=== PATIENT | female | born 1985 | race Asian ===

== ENCOUNTER 2025-03-19 09:43 | Emergency (ER) | payer MEDICAID, SELFPAY ==
[2025-03-19 09:55] VITALS: BP 204/113; PULSE 111; RESP 19; O2SAT 98
[2025-03-19 10:30] VITALS: BP 174/114; PULSE 91; RESP 18; TEMP 36.7; O2SAT 99
[2025-03-19 10:31] VITALS: BMI 31.6
--- NOTE | 2025-03-19 10:37 | PC.NURSE ---
PATIENT CAME IN TO ED FOR NAUSEA, DIZZINESS AND FEELING LIKE SHE WANTS TO PASS OUT. PATIENT STATES THIS STARTED TODAY THIS MORNING. PATIENT HAS HISTORY OF HIGH BLOOD PRESSURE AND HASN'T BEEN TAKING BLOOD PRESSURE MEDICATION FOR THE PAST YEAR. NOTIFIED DR. NAPIER FOR STROKE RULE OUT OF PATIENT.
--- NOTE | 2025-03-19 10:44 | XR_ITS ---
Examination: CT brain head without contrast. 2-D sagittal coronal reconstructions Date and time of exam: March 19, 2025, 1117 hours INDICATIONS: Onset headache and dizziness today CTDI: vol (mGy): 53.4 DLP: (mGycm): 1107 Technique: Multiple CT axial sections of the brain have been obtained, 5 mm slice thickness. Contrast has not been administered. 2-D sagittal, coronal reconstructions have been obtained Low dose protocols were performed. One or more of the following dose reduction techniques were used; automated exposure control, adjustment of the mA and/or KV according to patient size, use of iterative reconstruction technique. Findings: No significant ventricular enlargement. Intra-axial or extra-axial hemorrhage density is not seen. No mass effect or midline shift Basal cisterns are not remarkable. Fourth ventricle is midline. Cranial vault intact. Impression: Negative for acute hemorrhage, mass effect or midline shift Advise clinical correlation and follow-up accordingly
[2025-03-19] MEDS: PROCHLORPERAZINE INJ 5 MG/ML VIAL 2 ML 10 MG IV (10:51)
[2025-03-19 10:59] LABS: Basophils # (Auto) 0.1 Thou/mm3 (0.0-0.2); Basophils % (Auto) 1 % (0-2.5); Eosinophils # (Auto) 0.4 Thou/mm3 (0.0-0.5); Eosinophils % (Auto) 4 % (0-10); Hematocrit 37.7 % (36.0-46.0); Hemoglobin 11.7 g/dL (12.0-16.0); Immature Granulocytes Auto 0.19 Thou/mm3 (0.00-0.00); Lymphocytes # (Auto) 2.9 Thou/mm3 (1.0-4.8); Lymphocytes % (Auto) 27 % (10-50); Mean Corpuscular HGB Conc 31.0 g/dl (31.0-37.0); Mean Corpuscular Hemoglobin 23.6 pg (25.0-35.0); Mean Corpuscular Volume 76 fL (80-100); Monocytes # (Auto) 0.7 Thou/mm3 (0.0-0.8); Monocytes % (Auto) 6 % (0-12); Neutrophils # (Auto) 6.5 Thou/mm3 (1.8-7.7); Neutrophils % (Auto) 61 % (37-80); Nucleated Red Blood Cell # 0.00 Thou/mm3 (0.00-0.00); Platelet Count 293 Thou/mm3 (140-440); RDW Standard Deviation 37.4 fL (36.4-46.3); Red Blood Count 4.95 Miln/mm3 (4.00-5.20); White Blood Count 10.7 Thou/mm3 (3.6-11.0)
[2025-03-19 11:00] LABS: Nucleated Red Blood Cell % 0 /100 WBC (0)
[2025-03-19 11:16] LABS: Alanine Aminotransferase 29 U/L (10-49); Albumin, Serum 5.1 gm/dL (3.5-5.0); Albumin/Globulin Ratio 1.8 (1.2-2.2); Alkaline Phosphatase 73 U/L (46-116); Anion Gap 12 (7-16); Aspartate Amino Transferase 32 U/L (0-34); BUN/Creatinine Ratio 13 Ratio (12-20); Bilirubin,Total 0.3 mg/dL (0.3-1.2); Blood Urea Nitrogen 8 mg/dL (9-23); Calcium 9.5 mg/dL (8.3-10.6); Calcium (Corrected) 9.5 mg/dL (8.5-10.1); Carbon Dioxide 25.4 mMol/L (20.0-31.0); Chloride 103 mMol/L (98-107); Creatinine (Component) 0.6 mg/dL (0.6-1.3); Estimated Creatinine Clearance 132.4 mL/min (>60); Globulin 2.8 gm/dL (2.3-3.5); Glucose 150 mg/dL (74-106); Osmolality,Calculated 280 (275-295); Potassium 3.2 mMol/L (3.4-5.1); Sodium 140 mMol/L (136-145); Total Protein 7.9 gm/dL (5.7-8.2); eGFR > 60 See Note
[2025-03-19 11:30] VITALS: BP 154/104; PULSE 74; RESP 18; O2SAT 95
[2025-03-19 12:10] VITALS: BP 156/105; PULSE 79; RESP 18; TEMP 36.9; O2SAT 97
[2025-03-19 12:30] LABS: HCG,Qualitative Serum Negative
--- NOTE | 2025-03-19 12:44 | PD.EDADULT ---
ED General RME/HPI General Chief complaint: General Adult/Misc Complain Stated complaint: HIGH BP, N/V FEELS LIKE PASSING OUT Time Seen by Provider: 03/19/25 10:36 Arrival date/time: 03/19/25 09:43 RME / HPI RME / HPI narrative: 40-year-old female with a history of hypertension and asthma presented for evaluation of elevated blood pressure. Since this morning, she developed dizziness, nausea, vomiting, and presyncope. She reports a recent cough illness about two weeks ago, now resolved. Patient denies vision changes, fever, diarrhea, or other pain symptoms. Related Data Home Medications ?Medication ?Instructions ?Recorded ?Confirmed albuterol sulfate 90 mcg/actuation 2 inh inhalation PRN PRN Wheezing 05/21/22 05/21/22 aerosol inhaler vit no.95-ferrous 1 tab PO 1XD 05/21/22 05/21/22 fumarate 28 mg-folic acid 800 mcg tablet () Previous Rx's ?Medication ?Instructions ?Recorded ferrous sulfate 325 mg (65 mg 325 mg PO BID #90 tabs 02/12/19 iron) tablet amoxicillin 875 mg-potassium 1 tab PO BID #10 tabs 05/23/22 clavulanate 125 mg tablet docusate sodium 100 mg tablet 100 mg PO BID #20 tabs 05/23/22 hydrocodone 5 mg-acetaminophen 325 1 tab PO Q6H PRN pain #10 tabs 05/23/22 mg tablet ibuprofen 600 mg tablet 600 mg PO Q6H PRN pain #20 tabs 05/23/22 labetalol 100 mg tablet 100 mg PO BID #60 tabs 05/23/22 simethicone 80 mg chewable tablet 80 mg PO QID PRN abdominal 05/23/22 distention #14 tabs lisinopril 40 mg tablet 40 mg PO QDAY #30 tabs 03/19/25 Allergies Allergy/AdvReac Type Severity Reaction Status Date / Time No Known Allergies Allergy Verified 03/19/25 09:46 Review of Systems Review of Systems Systems Reviewed: All systems reviewed, normal except as documented Past Medical History Past Medical History CARDIAC: Positive Hypercholesterolemia and Hypertension RESPIRATORY: Positive Asthma REPRODUCTIVE: Positive Previous Pregnancies ENDOCRINE: Positive Diabetes Mellitus Type 2 OTHER HISTORY: Positive Hospitalization and Chicken Pox Family History FAMILY HISTORY: Positive Family Respiratory Disorders, Family Cardiac Disorders, Family Gastrointestinal Problems and Family Surgery Social History SMOKING STATUS: Former smoker SECOND HAND EXPOSURE: No SUBSTANCE USE: does not use ED Exam Narrative Physical exam: Constitutional: Awake, alert, nontoxic, appears uncomfortable. HEENT: Normocephalic, atraumatic, extraocular movements intact. Neck: Supple CV: Regular rate and rhythm, no murmurs/rubs/gallops Lungs: Clear to auscultation BL, no respiratory distress. Abd: Soft, NT, ND, no HSM noted to palpation Extremities: No deformities, no edema noted Neuro: AAOx3, CN 2-12 GIBL, no acute neuro deficit noted. Skin: Warm, dry, intact Course Course Course Narrative: 1304h: CT head is negative, labs remarkable for mild hypokalemia at 3.2 which we will replace. The blood pressure improved with Labetalol. Will DC home with a prescription of her Lisinopril. Quality Measures none Orders Category Date Time Status CT head/brain wo con Stat Exams 03/19/25 10:44 Completed CBC Stat Lab 03/19/25 10:35 Completed CMP [Comprehensive Metabolic Panel] Stat Lab 03/19/25 10:35 Completed HCG,Qualitative Serum Stat Lab 03/19/25 10:35 Completed Acetaminophen Ivpb [Ofirmev Inj] Med 03/19/25 10:43 Discontinued 1,000 mg in 100 ml IV NOW Labetalol* IV [Trandate* IV] Med 03/19/25 10:43 Discontinued 15 mg IVP X1 ONE Lisinopril [Prinivil] Med 03/19/25 13:09 Discontinued 40 mg PO X1 ONE Potassium Chloride [K-Dur] Med 03/19/25 13:13 Discontinued 40 meq PO X1 ONE Prochlorperazine Inj [Compazine Inj] Med 03/19/25 10:43 Discontinued 10 mg IV X1 ONE Vital Signs Vital signs: Vital Signs Pulse Rate 111 H 03/19/25 09:55 Respiratory Rate 19 03/19/25 09:55 Blood Pressure 204/113 H 03/19/25 09:55 Pulse Oximetry (%) 98 03/19/25 09:55 Oxygen Delivery Method Room Air 03/19/25 09:55 Pulse ox is 98% on room air which is adequate. Discharge Plan Plan Patient Disposition: HOME (Self Care) Patient condition on transfer: Stable Prescriptions/Referrals Prescriptions/Med Rec: New lisinopril 40 mg tablet 40 mg PO QDAY Qty: 30 0RF No Action ferrous sulfate 325 mg (65 mg iron) tablet 325 mg PO BID Qty: 90 0RF albuterol sulfate 90 mcg/actuation HFA aerosol inhaler 2 inh INHALATION PRN PRN (Reason: Wheezing) Patient Comments: INHALE 2 PUFFS BY MOUTH EVERY 6 HOURS NEEDED PNV no.95-ferrous fumarate-FA [] 28 mg iron- 800 mcg tablet 1 tab PO 1XD Patient Comments: TAKE 1 TABLET BY MOUTH EVERY DAY hydrocodone-acetaminophen 5-325 mg tablet 1 tab PO Q6H MDD 4 PRN (Reason: pain) Qty: 10 0RF ibuprofen 600 mg tablet 600 mg PO Q6H PRN (Reason: pain) Qty: 20 0RF amoxicillin-pot clavulanate 875-125 mg tablet 1 tab PO BID Qty: 10 0RF docusate sodium 100 mg tablet 100 mg PO BID Qty: 20 0RF simethicone 80 mg tablet,chewable 80 mg PO QID PRN (Reason: abdominal distention) Qty: 14 0RF labetalol 100 mg tablet 100 mg PO BID Qty: 60 1RF Rx Instructions: Check blood pressure every 12 hours and only take medication if systolic over 140 or diastolic over 90. Referrals: Jarrell Sanchez MD [Primary Care Provider, Family Practice] - In 1 week Problem List Clinical Impression: Hypokalemia, Hypertension, uncontrolled Patient/Caregiver Discharge Instructions Education Materials: Controlling High Blood Pressure, ED Hypertension, New (Begin Treatment) Additional Instructions: Some general health principles that can help you are the NEW START principles: Nutrition (eat a plant-based diet, avoiding meats in general, avoiding highly processed foods) Exercise (Daily exercise/walks as tolerated) Water (Drink adequate fresh water to maintain hydration, concentrating on water rather than on soda, coffee, tea, juice, etc for hydration) [place] (Spend time - 15-20 minutes or so with skin exposed in the leadership development manager and late evening sun for Vitamin D health benefits) [place] (Avoid alcohol, illicit drugs, caffeinated beverages, smoking, etc) Air (Deep breathing exercises in the early mornings in fresh air) Rest (Adequate rest at night, going to bed a few hours before midnight and avoiding all screens/television/loud music in the time right before going to bed, also avoiding heavy meals just prior to going to bed) Trust in God (Spend time daily in Bible study and prayer - health benefits in contemplation of God's true character) Additional resources that can benefit: www.[employer], look under resources and seminars. Another good website is [email or web address].Creator Up Print Language: [place] Stand Alone Forms: Carlotta Award Info., Patient Portal Info Letter MDM Narrative MDM hospital course (for use when minimal MDM required): Sumaya Keene am scribing for and in the presence of Dr. Jones. Clinical Information Provided by: patient Medical Records reviewed [facility] Meds/Rx considered, not ordered None Labs/Rad/Tests considered, not ordered None Chronic Illness/Social Conditions which may negatively complicate care or outcome(s)-explain: None or not applicable EKG EKG not done Labs Labs: see narrative above Imaging Imaging interpretation: see narrative above Imaging Interpretation(s): Ordering Physician: Yadira Jones MD Date of Service: 03/19/25 Procedure(s): CT head/brain wo con Accession Number(s): [id number] cc: Jarrell Sanchez MD; Alberto Borges MD; Yadira Jones MD~ Examination: CT brain head without contrast. 2-D sagittal coronal reconstructions Date and time of exam: March 19, 2025, 1117 hours INDICATIONS: Onset headache and dizziness today CTDI: vol (mGy): 53.4 DLP: (mGycm): 1107 Technique: Multiple CT axial sections of the brain have been obtained, 5 mm slice thickness. Contrast has not been administered. 2-D sagittal, coronal reconstructions have been obtained Low dose protocols were performed. One or more of the following dose reduction techniques were used; automated exposure control, adjustment of the mA and/or KV according to patient size, use of iterative reconstruction technique. Findings: No significant ventricular enlargement. Intra-axial or extra-axial hemorrhage density is not seen. No mass effect or midline shift Basal cisterns are not remarkable. Fourth ventricle is midline. Cranial vault intact. Impression: Negative for acute hemorrhage, mass effect or midline shift Advise clinical correlation and follow-up accordingly Dictated By: Alberto Borges MD Signed By: <Electronically signed by Alberto Borges MD in [place]> 03/19/25 1157 Medication Administration(s) Medication Administration History Discontinued Medications Acetaminophen (Ofirmev Inj) 1,000 mg in 100 mls @ 250 mls/hr IV NOW ONE Stop: 03/19/25 11:06 Last Admin: 03/19/25 11:15 Dose: Not Given Documented By: SR Non-Admin Reason: Patient Refused Labetalol HCl (Labetalol Inj 5 Mg/Ml Vial 4 Ml) 15 mg IVP X1 ONE Stop: 03/19/25 10:44 Last Admin: 03/19/25 10:51 Dose: 15 mg Documented By: VL Lisinopril (Lisinopril 20 Mg Tablet) 40 mg PO X1 ONE Stop: 03/19/25 13:10 Potassium Chloride (Potassium Chloride 20 Meq Tabcr) 40 meq PO X1 ONE Stop: 03/19/25 13:14 Prochlorperazine Edisylate (Prochlorperazine Inj 5 Mg/Ml Vial 2 Ml) 10 mg IV X1 ONE; Protocol Stop: 03/19/25 10:44 Last Admin: 03/19/25 10:51 Dose: 10 mg Documented By: VL See above Diagnosis Diagnoses ruled out and/or further discussions: Hypokalemia Hypertension, uncontrolled
[2025-03-19 13:00] VITALS: BP 177/111; PULSE 98; RESP 16; TEMP 36.9; O2SAT 98
[2025-03-19 13:32] VITALS: BP 176/123; PULSE 86
--- NOTE | 2025-03-19 13:34 | PC.NURSE ---
ok to d/c per provider as pt was given po lisnopril prior to d/c
== END 2025-03-19 13:39 | disposition home or self-care (01) ==
PROVIDERS: Emergency Provider Family Medicine; PCP Family Medicine
DX: E87.6 Hypokalemia (principal); I10 Essential (primary) hypertension; J45.909 Unspecified asthma, uncomplicated
CPT/HCPCS: 36415; 70450; 80053; 84703; 85025; 96374; 99284; J0780; J1920; A9270